=== PATIENT | female | born 1980 | race Caucasian/White ===

== ENCOUNTER 2021-03-09 09:52 | Emergency (ER) | payer OTHER, SELFPAY ==
[2021-03-09 09:56] VITALS: BP 140/70; PULSE 93; RESP 16; TEMP 36.6; O2SAT 100
--- NOTE | 2021-03-09 10:12 | ED.SKABFB ---
HPI - Skin/Abscess/Foreign Bdy General Chief complaint: Skin/Abscess/Foreign Body Stated complaint: bug bite Time Seen by Provider: 03/09/21 10:03 Source: patient Mode of arrival: ambulatory Limitations: no limitations History of Present Illness HPI narrative: Patient is a 41 year old female who presents with possible insect bite to right lower extremity. Patient reports initial lesion x 1 week, reports increased redness and swelling over the past few days. Reports being seen in Urgent Care in [place] and started on Bactrim at that time. Patient reports taking 3-4 days of Bactrim currently without relief. Patient reports taking Tylenol with limited relief. Patient denies significant medical history. MD complaint: insect bite/sting and abscess/boil Related Data Home Medications Medication Instructions Recorded Confirmed sulfamethoxazole-trimethoprim tablet 03/09/21 sulfamethoxazole-trimethoprim tablet 03/09/21 Allergies Allergy/AdvReac Type Severity Reaction Status Date / Time No Known Allergies Allergy Mild Verified 03/09/21 10:07 Review of Systems Review of Systems: Narrative: CONSTITUTIONAL: Denies fever, chills, or sweats. EYES: Denies visual changes, redness, or discharge. ENT: Denies rhinorrhea, congestion, sore throat, or otalgia. CARDIOVASCULAR: Denies chest pain, palpitations, or edema. RESPIRATORY: Denies cough or dyspnea. GASTROINTESTINAL: Denies abdominal pain, nausea, vomiting, or diarrhea. GENITOURINARY: Denies dysuria or hematuria. SKIN: Insect bite to right lower leg MUSCULOSKELETAL: Denies back pain, joint pain, or myalgia. NEUROLOGIC: Denies headache, numbness, dizziness, or weakness. PSYCHIATRIC: Denies anxiety or depression. [facility] Past Medical History Medical History (Updated 03/09/21 @ 10:47 by CLARIBEL Rosales) No significant past medical history Surgical History Surgical History (Updated 03/09/21 @ 10:40 by CLARIBEL Rosales) History of hysterectomy Family History Family History (Updated 03/09/21 @ 10:41 by CLARIBEL Rosales) Other No significant family history Social History Social History (Updated 03/09/21 @ 10:41 by CLARIBEL Rosales) Smoking status: Never smoker Alcohol intake: never Substance use: never Living arrangements: with family Occupation/Education: occupation Comments At the time of signature, I have reviewed and agree with nursing past medical, surgical, social, and family history unless otherwise noted. Please see nursing chart for further information. There is no relevant family history pertinent to the presenting complaint. Exam Narrative: Exam Narrative: GENERAL: Well-appearing, well-nourished, and in no acute distress. HEAD: Normocephalic, atraumatic. EYES: EOMI. No redness or drainage. ENT: Mucous membranes pink and moist. CHEST: No respiratory distress. Clear to auscultation. HEART: Regular rate and rhythm. EXTREMITIES: Normal range of motion. No edema. SKIN: Approximate 5 cm tender, erythematous, warm, fluctuant mass to RLE NEURO: No focal deficits. Alert and oriented x3. Gait steady. PSYCH: Normal affect. No signs of depression or anxiety. Course Vital Signs Vital signs: Vital Signs Temperature 36.6 C 03/09/21 09:56 Pulse Rate 93 03/09/21 09:56 Respiratory Rate 16 03/09/21 09:56 Blood Pressure 140/70 03/09/21 09:56 Pulse Oximetry 100 03/09/21 09:56 Temperature 36.6 C 03/09/21 09:56 Pulse Rate 93 03/09/21 09:56 Respiratory Rate 16 03/09/21 09:56 Blood Pressure 140/70 03/09/21 09:56 Pulse Oximetry 100 03/09/21 09:56 Reviewed-patient is informed that they may have pre-hypertension or hypertension based on a blood pressure reading. I recommend the patient call the primary care provider listed on their discharge instructions or a physician of their choice this week to arrange follow-up for further evaluation of possible pre-hypertension or hypertension. Procedures A
[2021-03-09] MEDS: TETANUS,DIPHTHERIA,AC PERTUSSIS ADULT (0.5 ML) BOOSTRIX IM (11:25)
[2021-03-09 11:32] VITALS: BP 129/73; PULSE 85; RESP 16; O2SAT 99
== END 2021-03-09 11:35 | disposition home or self-care (01) ==
PROVIDERS: Emergency Provider Nurse Practitioner; PCP Emergency Medicine
DX: L03.115 Cellulitis of right lower limb (principal); Z23 Encounter for immunization
CPT/HCPCS: 10060; 90471; 90715; 99283

== ENCOUNTER 2021-04-19 08:33 | Outpatient (CLI) | payer OTHER, SELFPAY ==
--- NOTE | ~2021-04-19 | MM_ITS ---
EXAMINATION: MM screening mane BI w annalise HISTORY: Screening TECHNIQUE: Craniocaudal and mediolateral oblique 3-D tomosynthesis images were obtained and synthetic 2-D images were generated. CAD analysis was submitted and interpreted. COMPARISON: 08/23/2015 BREAST PARENCHYMAL COMPOSITION: The breasts are extremely dense, which lowers the sensitivity of mamm ography FINDINGS: There is no evidence of suspicious mass, calcification, or architectural distortion to sugg est malignancy in either breast. There has been no suspicious interval change. IMPRESSION: 1. No mammographic evidence of malignancy. 2. Recommend routine screening mammography in one year. BI-RADS Category 1: Negative Reviewed, dictated and finalized at location A.
== END 2021-04-19 08:34 | disposition home or self-care (01) ==
LOC: ANHIMG 08:35
PROVIDERS: PCP Emergency Medicine; Visit Provider Nurse Practitioner Family
DX: Z12.31 Encounter for screening mammogram for malignant neoplasm of breast (principal)
CPT/HCPCS: 77063; 77067

== ENCOUNTER 2023-01-22 08:49 | Outpatient (CLI) | payer OTHER, SELFPAY ==
--- NOTE | ~2023-01-22 | MMUS_ITS ---
EXAMINATION: MM diagnostic mane BI w annalise, US breast LT limited HISTORY: Palpable lump of the lower inner left breast TECHNIQUE: Craniocaudal, mediolateral, and mediolateral oblique 3-D tomosynthesis images of the luis m ts were performed and synthetic 2-D images were generated. CAD analysis was submitted and interpreted . High resolution limited left breast ultrasound was performed. COMPARISON: 01/17/2021, 08/23/2015 BREAST PARENCHYMAL COMPOSITION: The breasts are heterogeneously dense, which may obscure small masses . FINDINGS: MAMMOGRAPHIC FINDINGS: Left breast: There is a 2.2 cm round, high density mass with indistinct margins in the lower inner br east at the 7:00 location corresponding to the palpable abnormality of concern. There is also a quest ionable 1.9 cm obscured mass in the posterior third of the lower/central breast at the 6:00 location. Right breast: No suspicious mass, calcification, or architectural distortion are identified to sugges t malignancy. There has been no suspicious interval change. ULTRASOUND: There is a 2.4 x 1.8 cm irregular hypoechoic mass with microlobulated margins, posterior acoustic enh ancement, and internal vascularity at the 7:00 location corresponding to the palpable abnormality of concern in the left breast. There also appears to be a nearby approximately 1.6 cm irregular hypoecho ic mass with indistinct margins at the 6:00 location near the chest wall of the left breast. IMPRESSION: 1. Suspicious left breast masses. 2. Ultrasound-guided biopsy is recommended. BI-RADS category 4, suspicious findings. Reviewed, dictated and finalized at location A. IMPRESSION: 1. Suspicious left breast masses. 2. Ultrasound-guided biopsy is recommended. BI-RADS category 4, suspicious findings.
== END 2023-01-22 08:50 | disposition home or self-care (01) ==
LOC: CHSIMG 08:52
PROVIDERS: PCP Nurse Practitioner Family; Visit Provider Nurse Practitioner Family
DX: N63.20 Unspecified lump in the left breast, unspecified quadrant (principal); R92.8 Other abnormal and inconclusive findings on diagnostic imaging of breast
CPT/HCPCS: 76642; 77062; 77066; G0279